=== PATIENT | female | born 1995 | race Caucasian/White ===

== ENCOUNTER 2018-02-01 03:00 | Emergency (ER) | payer SELFPAY ==
--- NOTE | 2018-02-01 03:08 | EDPHY ---
H & P Stated Complaint: abd Pain, n/v/d Time Seen by Provider: 02/01/18 03:08 HPI/ROS: HPI CHIEF COMPLAINT: Nausea, vomiting, diarrhea. HISTORY OF PRESENT ILLNESS: 22-year-old female, presents emergency room nausea vomiting and diarrhea. Patient states this started earlier this evening. She had mashed potatoes ribs and then went to sleep developed abdominal cramping with nausea vomiting and diarrhea. Nonbloody. States she had multiple episodes of vomiting multiple episodes of watery diarrhea and abdominal cramping. She got over initial episode went back to bed and then woke up again with similar symptoms. Patient denies any fever. Denies urinary symptoms denies chest pain or shortness of breath. She arrives emergency room asking for something to drink. Past Medical History: Denies medical history Past Surgical History: Denies surgical history Social History: Smokes tobacco daily, denies alcohol or illicit drugs. Family History: Noncontributory ROS REVIEW OF SYSTEMS: 10 Systems were reviewed and negative with the exception of the elements mentioned in the history of present illness. Exam Constitutional appears well nontoxic, triage nursing summary reviewed, vital signs reviewed, awake/alert. Eyes normal conjunctivae and sclera, EOMI, PERRLA. HENT normal inspection, atraumatic, moist mucus membranes, no epistaxis, neck supple/ no meningismus, no raccoon eyes. Respiratory clear to auscultation bilaterally, normal breath sounds, no respiratory distress, no wheezing. Cardiovascular rate normal, regular rhythm, no murmur, no edema, distal pulses normal. Gastrointestinal nontender on exam, soft, non-tender, no rebound, no guarding, normal bowel sounds, no distension, no pulsatile mass. Genitourinary no CVA tenderness. Musculoskeletal no midline vertebral tenderness, full range of motion, no calf swelling, no tenderness of extremities, no meningismus, good pulses, neurovascularly intact. Skin pink, warm, & dry, no rash, skin atraumatic. Neurologic awake, alert and oriented x 3, AAOx3, moves all 4 extremities equally, motor intact, sensory intact, CN II-XII intact, normal cerebellar, normal vision, normal speech. Psychiatric normal mood/affect. Heme/Lymph/Immune no lymphadenopathy. Differential diagnosis includes but is not limited to and in no particular order : Food-borne illness, GI illness, acute diarrhea Bowel obstruction, appendicitis, gallbladder disease, diverticulitis, colitis, enteritis, perforated viscus, gastritis, GERD, esophagitis, urinary tract infection, pyelonephritis, kidney stones Medical Decision Making: Plan for this patient IV establishment IV fluid bolus 2 L normal saline, IV Zofran for nausea, basic blood work, urinalysis, and re- examination. Her abdomen here is nontender she is not actively vomiting will re -evaluate. Re-evaluation: 5:00 a.m. Re-evaluation patient resting comfortably no acute distress. Patient is not vomiting infectious sleeping here. Patient's abdominal exam is unremarkable nontender. The patient has not had any vomiting or diarrhea here. I believe she can be discharged home. Recommend bland diet. She came in with nausea vomiting and diarrhea. Most likely food-borne illness. I discussed return precautions with her she understands return emergency room she develops worsening abdominal pain, fever, vomiting she is comfortable this plan. Eager for discharge. Abdomen benign at discharge. Source: Patient - Personal History LMP (Females 10-55): Over 28 Days Ago - Medical/Surgical History Hx Asthma: No Hx Chronic Respiratory Disease: No Hx Diabetes: No Hx Cardiac Disease: No Hx Renal Disease: No Hx Cirrhosis: No Hx Alcoholism: No Hx HIV/AIDS: No Hx Splenectomy or Spleen Trauma: No - Social History Smoking Status: Current every day smoker Constitutional: Initial Vital Signs Temperature (C) 36.9 C 02/01/18 03:03 Heart Rate 118 H 02/01/18 03:03 Respiratory Rate 20 02/01/18 03:03 Blood Pressure 95/83 H 02/01/18 03:03 O2 Sat (%) 94 02/01/18 03:03 O2 Delivery Mode Room Air Allergies/Adverse Reactions: Penicillins Allergy (Verified 02/01/18 03:03) Home Medications: Medication Instructions Recorded NK [No Known Home Meds] 02/01/18 Medical Decision Making - Data Points Laboratory Results: Laboratory Results 02/01/18 03:20 02/01/18 03:20 02/01/18 02/01/18 02/01/18 04:20 03:20 03:20 WBC RBC Hgb Hct MCV MCH MCHC RDW Plt Count MPV Neut % (Auto) Lymph % (Auto) [place] % (Auto) Eos % (Auto) Baso % (Auto) Nucleat RBC Rel Count Absolute Neuts (auto) Absolute Lymphs (auto) Absolute Monos (auto) Absolute Eos (auto) Absolute Basos (auto) Absolute Nucleated RBC Immature Gran % Immature Gran # Sodium 138 mEq/L mEq/L (135-145) Potassium 4.5 mEq/L mEq/L (3.5-5.2) Chloride 111 mEq/L H mEq/L (97-110) Carbon Dioxide 19 mEq/l L mEq/l (22-31) Anion Gap 8 mEq/L mEq/L (6-14) BUN 16 mg/dL mg/dL (7-23) Creatinine 0.8 mg/dL mg/dL (0.6-1.0) Estimated GFR > 60 Glucose 92 mg/dL mg/dL (70-100) Calcium 9.3 mg/dL mg/dL (8.5-10.4) Total Bilirubin 0.4 mg/dL mg/dL (0.1-1.4) Conjugated Bilirubin 0.2 mg/dL mg/dL (0.0-0.5) Unconjugated Bilirubin 0.2 mg/dL mg/dL (0.0-1.1) AST 22 IU/L IU/L (14-46) ALT 19 IU/L IU/L (9-52) Alkaline Phosphatase 63 IU/L IU/L (38-126) Total Protein 7.3 g/dL g/dL (6.3-8.2) Albumin 4.4 g/dL g/dL (3.5-5.0) Lipase 148 IU/L IU/L (23-300) Beta HCG, Qual NEGATIVE Urine Color YELLOW Urine Appearance CLEAR Urine pH 5.0 (5.0-7.5) Ur Specific [place] 1.014 (1.002-1.030) Urine Protein NEGATIVE (NEGATIVE) Urine Ketones NEGATIVE (NEGATIVE) Urine Blood 1+ H (NEGATIVE) Urine Nitrate NEGATIVE (NEGATIVE) Urine Bilirubin NEGATIVE (NEGATIVE) Urine Urobilinogen NEGATIVE EU EU (0.2-1.0) Ur Leukocyte Esterase NEGATIVE (NEGATIVE) Urine RBC 1-3 /hpf /hpf (0-3) Urine WBC 1-3 /hpf /hpf (0-3) Ur Epithelial Cells TRACE /lpf /lpf (NONE-1+) Urine Bacteria TRACE /hpf H /hpf (NONE SEEN) Urine Glucose NEGATIVE (NEGATIVE) 02/01/18 03:20 WBC 12.38 10^3/uL H 10^3/uL (3.80-9.50) RBC 5.21 10^6/uL 10^6/uL (4.18-5.33) Hgb 15.9 g/dL g/dL (12.6-16.3) Hct 45.8 % % (38.0-47.0) MCV 87.9 fL fL (81.5-99.8) MCH 30.5 pg pg (27.9-34.1) MCHC 34.7 g/dL g/dL (32.4-36.7) RDW 13.3 % % (11.5-15.2) Plt Count 187 10^3/uL 10^3/uL (150-400) MPV 10.1 fL fL (8.7-11.7) Neut % (Auto) 84.8 % H % (39.3-74.2) Lymph % (Auto) 8.2 % L % (15.0-45.0) [place] % (Auto) 6.1 % % (4.5-13.0) Eos % (Auto) 0.5 % L % (0.6-7.6) Baso % (Auto) 0.2 % L % (0.3-1.7) Nucleat RBC Rel Count 0.0 % % (0.0-0.2) Absolute Neuts (auto) 10.49 10^3/uL H 10^3/uL (1.70-6.50) Absolute Lymphs (auto) 1.01 10^3/uL 10^3/uL (1.00-3.00) Absolute Monos (auto) 0.76 10^3/uL 10^3/uL (0.30-0.80) Absolute Eos (auto) 0.06 10^3/uL 10^3/uL (0.03-0.40) Absolute Basos (auto) 0.03 10^3/uL 10^3/uL (0.02-0.10) Absolute Nucleated RBC 0.00 10^3/uL 10^3/uL (0-0.01) Immature Gran % 0.2 % % (0.0-1.1) Immature Gran # 0.03 10^3/uL 10^3/uL (0.00-0.10) Sodium Potassium Chloride Carbon Dioxide Anion Gap BUN Creatinine Estimated GFR Glucose Calcium Total Bilirubin Conjugated Bilirubin Unconjugated Bilirubin AST ALT Alkaline Phosphatase Total Protein Albumin Lipase Beta HCG, Qual Urine Color Urine Appearance Urine pH Ur Specific [place] Urine Protein Urine Ketones Urine Blood Urine Nitrate Urine Bilirubin Urine Urobilinogen Ur Leukocyte Esterase Urine RBC Urine WBC Ur Epithelial Cells Urine Bacteria Urine Glucose Medications Given: Discontinued Medications Sodium Chloride (Ns) 1,000 mls @ 0 mls/hr IV EDNOW ONE; Wide Open PRN Reason: Protocol Stop: 02/01/18 03:12 Last Admin: 02/01/18 03:17 Dose: 1,000 mls Sodium Chloride (Ns) 1,000 mls @ 0 mls/hr IV EDNOW ONE; Wide Open PRN Reason: Protocol Stop: 02/01/18 03:12 Last Admin: 02/01/18 03:17 Dose: 1,000 mls Ondansetron HCl (Zofran) 4 mg IVP EDNOW ONE Stop: 02/01/18 03:12 Last Admin: 02/01/18 03:17 Dose: 4 mg Departure - Departure Disposition: Home, Routine, Self-Care Clinical Impression: Vomiting and diarrhea Condition: Good Instructions: Acute Nausea and Vomiting (ED) Additional Instructions: 1. [place] diet over the next 24-48 hours no spicy fatty greasy foods 2. Return emergency room if you have worsening abdominal pain, fever, vomiting. Referrals: NONE *PRIMARY CARE P,. [Primary Care Provider] - As per Instructions
[2018-02-01] MEDS ORDERED: ONDANSETRON 4 MG/2 ML VIAL IVP ONE (03:11)
[2018-02-01] MEDS ORDERED: NS 1,000 ML IV ONE ×2 (03:11)
[2018-02-01 03:30] LABS: PLATELET COUNT 187 10^3/uL (150-400)
[2018-02-01 05:14] VITALS: BP 106/73
== END 2018-02-01 05:13 | disposition home or self-care (01) ==
DX: R11.2 Nausea with vomiting, unspecified (principal); R19.7 Diarrhea, unspecified; E86.9 Volume depletion, unspecified; Z88.0 Allergy status to penicillin
CPT/HCPCS: 96374

== ENCOUNTER 2018-03-28 19:04 | Emergency (ER) | payer OTHER ==
[2018-03-28 19:14] VITALS: BP 106/89
--- NOTE | 2018-03-28 19:43 | EDPHY ---
H & P Time Seen by Provider: 03/28/18 19:32 HPI/ROS: Chief complaint. Fell on ice HPI. 22-year-old female slipped fall on ice yesterday struck her head. Several hours later she slipped on wet tile and again fell. She did strike the back of her head. Did not lose consciousness. She has neck pain as well. No other back pain, chest pain, abdominal pain. Headache this morning but not now. Vomiting x1 this morning but no nausea vomiting now. No visual change. No focal weakness paresthesias. No previous concussion ROS 10 systems were reviewed and negative with the exception of the elements mentioned in the history of present illness Past Medical/Surgical History: Healthy Social History: Single, daily smoker, no alcohol Smoking Status: Current every day smoker Physical Exam: General Appearance: Alert pleasant well-developed female mild distress vital signs are stable Eyes: Pupils equal and round no pallor or injection. ENT, no hemotympanum or [place] sign. No oral pharyngeal or dental trauma. Mild bump to the occiput Respiratory: There are no retractions, lungs are clear to auscultation. Cardiovascular: Regular rate and rhythm. Gastrointestinal: Abdomen is soft and nontender, no masses, bowel sounds normal. Neurological: Awake and alert, sensory and motor exams grossly normal. Skin: Warm and dry, no rashes. Musculoskeletal: Neck is supple and tender on both sides of her neck but not over the cervical spine. No T, L, S spine tenderness Extremities symmetrical, full range of motion. Psychiatric: Patient is oriented X 3, there is no agitation. Constitutional: Initial Vital Signs Temperature (C) 36.6 C 03/28/18 19:11 Heart Rate 108 H 03/28/18 19:11 Respiratory Rate 16 03/28/18 19:11 Blood Pressure 106/89 H 03/28/18 19:11 O2 Sat (%) 98 03/28/18 19:11 O2 Delivery Mode Room Air Allergies/Adverse Reactions: Penicillins Allergy (Verified 03/28/18 19:14) Home Medications: Medication Instructions Recorded NK [No Known Home Meds] 02/01/18 Medical Decision Making ED Course/Re-evaluation: Patient remained stable. Patient and I discussed head injury precautions. We discussed CT of head and I do not think that she needs that she expresses understanding and agreement. Her symptoms are resolving Differential Diagnosis: Slip and fall yesterday with head injury. No loss of consciousness. Normal exam today. No evidence for intracranial bleeding or skull fracture Departure - Departure Disposition: Home, Routine, Self-Care Clinical Impression: Concussion Qualifiers: Encounter type: initial encounter Loss of consciousness presence/duration: without LOC Qualified Code(s): S06.0X0A - Concussion without loss of consciousness, initial encounter Condition: Good Instructions: Concussion (ED) Additional Instructions: May use Tylenol 650 mg every 4-6 hours, ibuprofen 600 mg every 6 hr for headache Return for worsening headache, vomiting, confusion No activity that may result in head injury for 1 week. Follow-up with Dr. Mcgarry in 5-7 days for any continuing symptoms Referrals: NONE *PRIMARY CARE P,. [Primary Care Provider] - As per Instructions Moriah Mcgarry MD [Medical Doctor] - 5-7 days, if not improved Stand Alone Forms: Work Excuse
== END 2018-03-28 20:18 | disposition home or self-care (01) ==
DX: S06.0X0A Concussion without loss of consciousness, initial encounter (principal); F17.200 Nicotine dependence, unspecified, uncomplicated; W00.0XXA Fall on same level due to ice and snow, initial encounter; Y92.9 Unspecified place or not applicable; Y99.9 Unspecified external cause status; Y93.9 Activity, unspecified